=== PATIENT | female | born 1990 | race Caucasian/White ===

== ENCOUNTER 2020-10-07 16:02 | Inpatient (IN) | payer MEDICAID ==
[~2020-10-07] VITALS: Ht 170.2 cm; Wt 61.2 kg
[2020-10-07] MEDS ORDERED: WELLBUTRIN XL150 M1 PO (16:09)
[2020-10-07 16:40] LABS: BASOPHILS 0.1 % (0-2); EOSINOPHILS 2.1 % (0-7); HEMATOCRIT 43.2 % (36.0-48.0); HEMOGLOBIN 14.5 g/dL (12-16); IMMATURE GRANULOCYTES 0.2 % (0-5); LYMPHOCYTES 14.4 % (15-50); MCH 34.5 pg (26.0-34.0); MCHC 33.6 g/dL (31.0-37.0); MCV 102.9 fL (80.0-100.0); MEAN PLATELET VOLUME 8.1 fL (7.4-10.4); MONOCYTES 7.4 % (2-11); NEUTROPHIL ABS# 6.86 10x3/uL (1.56-6.13); NEUTROPHILS 75.8 % (40-80); PLATELET COUNT 235 10x3/uL (130-400); RDW 13.1 % (11.5-14.5); WBC 9.1 10x3/uL (4.8-10.8)
[2020-10-07 16:48] LABS: CALC OSMOLALITY 261 mosm/kg (275-300); CALCIUM 10.2 mg/dL (8.5-10.1); CARBON DIOXIDE 25.8 mmol/L (21.0-32.0); CHLORIDE - SERUM 94 mmol/L (98-107); CREATININE - SERUM 0.8 mg/dL (0.6-1.3); GLUCOSE 92 mg/dL (74-106); POTASSIUM - SERUM 3.9 mmol/L (3.5-5.1); SODIUM 130 mmol/L (136-145); UREA NITROGEN 16 mg/dL (7-18); eGFR NON AFRICAN AMERICAN 88 mL/min (90-120)
[2020-10-07 16:54] LABS: BILIRUBIN NEGATIVE (NEGATIVE); HCG URINE NEGATIVE (NEGATIVE); KETONE LARGE mg/dL (NEGATIVE); NITRITE NEGATIVE (NEGATIVE); UROBILINOGEN NORMAL mg/dL (< 2)
[2020-10-07 16:56] LABS: ALBUMIN 4.2 g/dL (3.4-5.0); ALKALINE PHOSPHATASE 117 U/L (30-120); ALT (SGPT) 28 U/L (10-68); AMYLASE - SERUM 147 U/L (25-115); BILIRUBIN - TOTAL 0.47 mg/dL (0.2-1.3); LIPASE 1417 U/L (73-393); PROTEIN - SERUM 8.5 g/dL (6.4-8.2); TROPONIN-I < 0.017 ng/mL (0.000-0.060)
[2020-10-07 19:42] VITALS: BP 121/93
[2020-10-08 04:00] VITALS: BP 122/82
[2020-10-08 06:25] LABS: BASOPHILS 0.2 % (0-2); EOSINOPHILS 2.7 % (0-7); HEMATOCRIT 38.8 % (36.0-48.0); HEMOGLOBIN 12.8 g/dL (12-16); IMMATURE GRANULOCYTES 0.3 % (0-5); LYMPHOCYTE ABS# 2.35 10x3/uL (1.18-3.74); LYMPHOCYTES 24.6 % (15-50); MCV 103.2 fL (80.0-100.0); MEAN PLATELET VOLUME 8.4 fL (7.4-10.4); MONOCYTES 6.3 % (2-11); NEUTROPHIL ABS# 6.28 10x3/uL (1.56-6.13); NEUTROPHILS 65.9 % (40-80); PLATELET COUNT 269 10x3/uL (130-400); RBC 3.76 10x6/uL (4.00-5.40); RDW 13.2 % (11.5-14.5); WBC 9.5 10x3/uL (4.8-10.8)
[2020-10-08 06:41] LABS: CALC OSMOLALITY 266 mosm/kg (275-300); CALCIUM 8.8 mg/dL (8.5-10.1); CHLORIDE - SERUM 97 mmol/L (98-107); CHOL - HDL RATIO 2.6 ratio (2.3-4.1); CHOLESTEROL, TOTAL 223 mg/dL (0-200); CREATININE - SERUM 0.7 mg/dL (0.6-1.3); GLUCOSE 76 mg/dL (74-106); HDL CHOLESTEROL 87 mg/dL (32-96); LDL CHOLESTEROL 119 mg/dL (0-100); LDL-HDL RATIO 1.4 ratio (1.5-3.5); MAGNESIUM - SERUM 2.8 mg/dL (1.8-2.4); PHOSPHOROUS 3.6 mg/dL (2.5-4.9); SODIUM 134 mmol/L (136-145); TRIGLYCERIDE 86 mg/dL (30-200); UREA NITROGEN 13 mg/dL (7-18); eGFR NON AFRICAN AMERICAN > 90 mL/min (90-120)
[2020-10-08 06:43] LABS: AMYLASE - SERUM 100 U/L (25-115); LIPASE 917 U/L (73-393); POTASSIUM - SERUM 3.3 mmol/L (3.5-5.1)
--- NOTE | 2020-10-08 07:07 | NUR ---
pt slept on and off throughout the night. said she will wake up and be in terrible pain. meds in the emar are helping. bed in lowest position and call light in reach
[2020-10-08 08:26] VITALS: BP 128/81
[2020-10-08 10:29] LABS: INR 1.01 (0.85-1.17); PROTIME 12.3 SECONDS (11.6-15.0)
[2020-10-08 12:43] VITALS: BP 115/76
[2020-10-08 13:58] VITALS: Ht 170.2 cm; Wt 61.2 kg
[2020-10-08 20:00] VITALS: BP 124/77
[2020-10-09] VITALS: BP 125/81
[2020-10-09 04:00] VITALS: BP 114/81
[2020-10-09 06:14] LABS: PROTIME 12.2 SECONDS (11.6-15.0)
[2020-10-09 06:24] LABS: BASOPHILS 0.1 % (0-2); EOSINOPHILS 3.7 % (0-7); HEMOGLOBIN 11.2 g/dL (12-16); IMMATURE GRANULOCYTES 0.4 % (0-5); LYMPHOCYTES 27.1 % (15-50); MCH 34.1 pg (26.0-34.0); MCHC 32.9 g/dL (31.0-37.0); MCV 103.7 fL (80.0-100.0); MEAN PLATELET VOLUME 8.2 fL (7.4-10.4); MONOCYTES 7.2 % (2-11); NEUTROPHIL ABS# 4.54 10x3/uL (1.56-6.13); NEUTROPHILS 61.5 % (40-80); PLATELET COUNT 218 10x3/uL (130-400); RBC 3.28 10x6/uL (4.00-5.40); RDW 13.2 % (11.5-14.5); WBC 7.4 10x3/uL (4.8-10.8)
[2020-10-09 06:56] LABS: CALC OSMOLALITY 270 mosm/kg (275-300); CALCIUM 8.1 mg/dL (8.5-10.1); CARBON DIOXIDE 25.2 mmol/L (21.0-32.0); CHLORIDE - SERUM 103 mmol/L (98-107); CREATININE - SERUM 0.6 mg/dL (0.6-1.3); GLUCOSE 101 mg/dL (74-106); MAGNESIUM - SERUM 2.2 mg/dL (1.8-2.4); PHOSPHOROUS 3.8 mg/dL (2.5-4.9); POTASSIUM - SERUM 3.6 mmol/L (3.5-5.1); SODIUM 136 mmol/L (136-145); UREA NITROGEN 10 mg/dL (7-18); eGFR NON AFRICAN AMERICAN > 90 mL/min (90-120)
[2020-10-09 08:14] VITALS: BP 118/85
[2020-10-09 12:19] VITALS: BP 107/75
[2020-10-09 17:05] VITALS: BP 104/66
[2020-10-09 20:00] VITALS: BP 126/83
[2020-10-10 04:00] VITALS: BP 100/64
[2020-10-10 06:00] LABS: BASOPHILS 0.4 % (0-2); EOSINOPHILS 3.5 % (0-7); HEMATOCRIT 33.6 % (36.0-48.0); IMMATURE GRANULOCYTES 0.2 % (0-5); LYMPHOCYTE ABS# 1.31 10x3/uL (1.18-3.74); LYMPHOCYTES 27.1 % (15-50); MCH 33.8 pg (26.0-34.0); MCHC 32.7 g/dL (31.0-37.0); MCV 103.4 fL (80.0-100.0); MEAN PLATELET VOLUME 8.3 fL (7.4-10.4); NEUTROPHIL ABS# 2.98 10x3/uL (1.56-6.13); NEUTROPHILS 61.8 % (40-80); PLATELET COUNT 253 10x3/uL (130-400); RBC 3.25 10x6/uL (4.00-5.40); RDW 13.1 % (11.5-14.5)
[2020-10-10 06:06] LABS: INR 0.96 (0.85-1.17); PROTIME 11.8 SECONDS (11.6-15.0)
[2020-10-10 06:19] LABS: WBC 4.8 10x3/uL (4.8-10.8)
[2020-10-10 06:31] LABS: CALC OSMOLALITY 277 mosm/kg (275-300); CARBON DIOXIDE 25.1 mmol/L (21.0-32.0); CHLORIDE - SERUM 106 mmol/L (98-107); CREATININE - SERUM 0.7 mg/dL (0.6-1.3); GLUCOSE 134 mg/dL (74-106); MAGNESIUM - SERUM 2.7 mg/dL (1.8-2.4); PHOSPHOROUS 3.3 mg/dL (2.5-4.9); POTASSIUM - SERUM 3.4 mmol/L (3.5-5.1); SODIUM 139 mmol/L (136-145); eGFR NON AFRICAN AMERICAN > 90 mL/min (90-120)
[2020-10-10 06:32] LABS: UREA NITROGEN 7 mg/dL (7-18)
[2020-10-10 08:14] VITALS: BP 104/72
[2020-10-10] MEDS ORDERED: ATIVAN1 MG PO ×2 (09:08→09:09)
--- NOTE | 2020-10-10 10:41 | MORECARE ---
CASE MANAGEMENT DISCHARGE SUMMARY PATIENT: DAJA HUIZAR UNIT: [id number] ADM DATE: 10/07/20 AGE: 30 : 88 SEX: F ROOM/BED: D.[facility]8 AUTHOR: TOÑA,DOC PHYSICIAN: REFERRING PHYSICIAN: ALISA FERNANDEZ MD DATE OF SERVICE: 10/10/20 Case Management Discharge Planning Summary COMMENTS ENTERED DATE: 10/10/20 10:38 CT COMMENT TYPE: Discharge Planning REVIEWER: Tricia [facility] given to nurse to include with dc instructions. DCP REVIEW SUMMARY ANTICIPATED D/C DATE: EXPECTED LOS : CASE STATUS: DCP Initiated INITIAL REVIEW: 10/08/2020 INITIAL REVIEWER: Tricia Sterling FINAL DISCHARGE DISPOSITION: : FINAL REVIEWER: FINAL REVIEW DATE: DCP Focus Questions & Answers - Added on: QUESTION: ANSWER : PATIENT: DAJA HUIZAR ENCOUNTER: [id number] MEDICAL RECORD#: [id number] ADMISSION DATE: 10/07/2020 DISCHARGE DATE: ATTENDING MD: : AGE: 30 MARITAL STATUS: S DC PLAN ID: [id number] FACILITY: [facility] PRINTED ON: 10/10/20 10:41 CT All edits/amendments must be made on the electronic document DICTATION DATE: 10/10/20 104 CALENDER WORKER HELPER: COOPER 10/10/20 1041 RPT#: [id number] DC DATE: STATUS: ADM IN [facility] [address] [place] [address] END OF REPORT
--- NOTE | 2020-10-10 12:02 | MORECARE ---
CASE MANAGEMENT DISCHARGE SUMMARY PATIENT: DAJA HUIZAR UNIT: [id number] ADM DATE: 10/07/20 AGE: 30 : 88 SEX: F ROOM/BED: D.[facility]8 AUTHOR: TOÑA,DOC PHYSICIAN: REFERRING PHYSICIAN: ALISA FERNANDEZ MD DATE OF SERVICE: 10/10/20 Case Management Discharge Planning Summary COMMENTS ENTERED DATE: 10/10/20 10:38 CT COMMENT TYPE: Discharge Planning REVIEWER: Tricia [facility] given to nurse to include with dc instructions. DCP REVIEW SUMMARY ANTICIPATED D/C DATE: EXPECTED LOS : CASE STATUS: DCP Initiated INITIAL REVIEW: 10/08/2020 INITIAL REVIEWER: Tricia Sterling FINAL DISCHARGE DISPOSITION: : FINAL REVIEWER: FINAL REVIEW DATE: DCP Focus Questions & Answers - Added on: QUESTION: ANSWER : PATIENT: DAJA HUIZAR ENCOUNTER: [id number] MEDICAL RECORD#: [id number] ADMISSION DATE: 10/07/2020 DISCHARGE DATE: ATTENDING MD: : AGE: 30 MARITAL STATUS: S DC PLAN ID: [id number] FACILITY: [facility] PRINTED ON: 10/10/20 12:02 CT All edits/amendments must be made on the electronic document DICTATION DATE: 10/10/201201 STOCK RECEIVER: COOPER 10/10/201201 RPT#: [id number] DC DATE: STATUS: ADM IN [facility] [address] [place] [address] END OF REPORT
--- NOTE | 2020-10-10 12:07 | NUR ---
IV THERAPY REMOVED FROM RIGHT FOREARM WITH TIP INTACT. PT VERBALIZED UNDERSTANDING OF DISCHARGE PAPERS. STATES SHE HAD TO GET SOMEONE UP HERE TO DRIVE HER CAR HOME.
--- NOTE | 2020-10-11 08:30 | MORECARE ---
CASE MANAGEMENT DISCHARGE SUMMARY PATIENT: DAJA HUIZAR UNIT: [id number] ADM DATE: 10/07/20 AGE: 30 : 88 SEX: F ROOM/BED: D.[facility]8 AUTHOR: TOÑA,DOC PHYSICIAN: REFERRING PHYSICIAN: ALISA FERNANDEZ MD DATE OF SERVICE: 10/11/20 Case Management Discharge Planning Summary COMMENTS ENTERED DATE: 10/10/20 10:38 CT COMMENT TYPE: Discharge Planning REVIEWER: Tricia [facility] given to nurse to include with dc instructions. DCP REVIEW SUMMARY ANTICIPATED D/C DATE: EXPECTED LOS : CASE STATUS: DCP Initiated INITIAL REVIEW: 10/08/2020 INITIAL REVIEWER: Tricia Sterling FINAL DISCHARGE DISPOSITION: : FINAL REVIEWER: FINAL REVIEW DATE: DCP Focus Questions & Answers - Added on: QUESTION: ANSWER : PATIENT: DAJA HUIZAR ENCOUNTER: [id number] MEDICAL RECORD#: [id number] ADMISSION DATE: 10/07/2020 DISCHARGE DATE: 10/10/2020 ATTENDING MD: : AGE: 30 MARITAL STATUS: S DC PLAN ID: [id number] FACILITY: [facility] PRINTED ON: 10/11/20 8:30 CT All edits/amendments must be made on the electronic document DICTATION DATE: 10/11/20829 CINDER BLOCK MASON: COOPER 10/11/20829 RPT#: [id number] DC DATE:10/10/20 STATUS: DIS IN [facility] [address] [place] [address] END OF REPORT
== END 2020-10-10 12:08 | disposition home or self-care (01) | DRG 439 ==
LOC: D.ER 16:02 → D.MS 21:24
PROVIDERS: Family Medicine; ADMIT Family Medicine; ATTEND Family Medicine
DX: K85.90 Acute pancreatitis without necrosis or infection, unspecified (principal); E87.1 Hypo-osmolality and hyponatremia; F10.20 Alcohol dependence, uncomplicated

== ENCOUNTER 2020-10-20 20:15 | Inpatient (IN) | payer MEDICAID ==
[~2020-10-20] VITALS: Ht 170.2 cm; Wt 61.2 kg
[~2020-10-20 20:15] MED LIST: ATIVAN1 MG PO; WELLBUTRIN XL150 M1 PO
[2020-10-20 20:53] LABS: BASOPHILS 0.3 % (0-2); EOSINOPHILS 1.8 % (0-7); HEMATOCRIT 42.4 % (36.0-48.0); HEMOGLOBIN 14.1 g/dL (12-16); IMMATURE GRANULOCYTES 0.4 % (0-5); LYMPHOCYTE ABS# 2.12 10x3/uL (1.18-3.74); MCH 34.2 pg (26.0-34.0); MCHC 33.3 g/dL (31.0-37.0); MCV 102.9 fL (80.0-100.0); MONOCYTES 4.1 % (2-11); NEUTROPHILS 72.4 % (40-80); RBC 4.12 10x6/uL (4.00-5.40); RDW 13.4 % (11.5-14.5); WBC 10.1 10x3/uL (4.8-10.8)
[2020-10-20 21:03] LABS: CALC OSMOLALITY 275 mosm/kg (275-300); CALCIUM 9.3 mg/dL (8.5-10.1); CARBON DIOXIDE 23.6 mmol/L (21.0-32.0); CHLORIDE - SERUM 104 mmol/L (98-107); CREATININE - SERUM 0.8 mg/dL (0.6-1.3); GLUCOSE 96 mg/dL (74-106); POTASSIUM - SERUM 4.2 mmol/L (3.5-5.1); SODIUM 139 mmol/L (136-145); UREA NITROGEN 8 mg/dL (7-18); eGFR NON AFRICAN AMERICAN 88 mL/min (90-120)
[2020-10-20 21:04] LABS: PLATELET COUNT 349 10x3/uL (130-400)
[2020-10-20 21:07] LABS: BILIRUBIN NEGATIVE (NEGATIVE); KETONE NEGATIVE (NEGATIVE); NITRITE NEGATIVE (NEGATIVE); UROBILINOGEN NORMAL mg/dL (< 2)
[2020-10-20 21:17] LABS: ALBUMIN 3.9 g/dL (3.4-5.0); ALKALINE PHOSPHATASE 143 U/L (30-120); ALT (SGPT) 33 U/L (10-68); BILIRUBIN - TOTAL 0.16 mg/dL (0.2-1.3); PROTEIN - SERUM 8.1 g/dL (6.4-8.2)
[2020-10-20 21:18] LABS: BACTERIA FEW HPF (NONE SEEN); SQUAMOUS EPITHELIAL 0-5 HPF (0-4); WHITE CELLS - URINE 0-5 HPF (0-4)
[2020-10-20 21:19] LABS: UDS - AMPHET NEGATIVE QUAL (NEGATIVE); UDS - BARB NEGATIVE QUAL (NEGATIVE); UDS - BENZO POSITIVE QUAL (NEGATIVE); UDS - COCAINE NEGATIVE QUAL (NEGATIVE); UDS - OPIATE NEGATIVE QUAL (NEGATIVE); UDS - PCP NEGATIVE QUAL (NEGATIVE); UDS - THC NEGATIVE QUAL (NEGATIVE)
[2020-10-20 21:20] LABS: HCG URINE NEGATIVE (NEGATIVE)
--- NOTE | 2020-10-20 22:00 | NUR ---
PT GIVEN WATER TO DRINK. DENIES NEEDS AT THIS TIME.
--- NOTE | 2020-10-21 | NUR ---
PT RESTING EYES CLOSED RESP EVEN AND UNLABORED.
[2020-10-21 02:35] VITALS: BP 136/74
[2020-10-21 04:35] VITALS: BP 126/87; BMI 21.2
[2020-10-21 05:51] LABS: APTT 26.8 SECONDS (22.8-39.4); INR 1.01 (0.85-1.17); PROTIME 12.3 SECONDS (11.6-15.0)
[2020-10-21 06:31] LABS: AMYLASE - SERUM 82 U/L (25-115); CKMB 0.8 U/L (0.0-3.6); CREATINE KINASE 92 UL (21-215); LIPASE 761 U/L (73-393); PRO BNP 23 pg/mL (0-125)
[2020-10-21 06:32] LABS: TROPONIN-I < 0.017 ng/mL (0.000-0.060)
[2020-10-21 08:00] VITALS: BP 130/86
--- NOTE | 2020-10-21 09:11 | NUR ---
PT AWAKE AND ORIENTED, SITTING IN BED CROSSLEGGED. C/O OF PAIN ON THE RIGHT SIDE OF HER BODY AND NAUSEA. STATES SHE FEELS GENERALLY TERRIBLE TODAY. TOOK ALL MEDICATIONS WITHOUT COMPLICATIONS. CL IN REACH, SRX2.
[2020-10-21 11:00] VITALS: BP 120/70
--- NOTE | 2020-10-21 18:00 | NUR ---
I have reviewed this patient and I concur with the Shift Assessment completed by the Licensed Practical Nurse today this shift.
--- NOTE | 2020-10-21 20:30 | NUR ---
PT REPORTS THAT SHE REMOVED THE BANDAGE IN PLACE WHERE LAB HAD DRAWN BLOOD FROM THIS AM. WHEN DOING SO, PT STATED SHE PULLED TAPE TO FAST AND TORE SKIN ON HER ARM. MEPILEX IN PLACE, COBAN LIGHTLY WRAPPED AROUND MEPILEX TO KEEP IN PLACE. L RADIAL PULSE PRESENT. SKIN PINK, SKIN CAP REFIL <2.
[2020-10-21 20:45] VITALS: BP 122/80
--- NOTE | 2020-10-21 21:30 | NUR ---
REPORT RECEIVED, WILL CONT POC. PT A&O, UP IN BED READING. NO S/S OF DISTRESS OBSERVED. RR EVEN & UNLABORED ON RA. BED LOCKED AND LOWERED, CL IN REACH. ASSESSMENT COMPLETED AT THIS TIME. WILL CONT TO MONITOR.
[2020-10-21 23:32] VITALS: BP 117/87
[2020-10-22 04:11] VITALS: BP 102/70
[2020-10-22 06:11] LABS: BASOPHILS 0.2 % (0-2); EOSINOPHILS 3.6 % (0-7); HEMOGLOBIN 12.1 g/dL (12-16); IMMATURE GRANULOCYTES 0.3 % (0-5); LYMPHOCYTE ABS# 2.28 10x3/uL (1.18-3.74); LYMPHOCYTES 26.3 % (15-50); MCH 33.4 pg (26.0-34.0); MCHC 31.8 g/dL (31.0-37.0); MEAN PLATELET VOLUME 8.1 fL (7.4-10.4); MONOCYTES 5.1 % (2-11); NEUTROPHILS 64.5 % (40-80); RBC 3.62 10x6/uL (4.00-5.40); RDW 13.3 % (11.5-14.5); WBC 8.7 10x3/uL (4.8-10.8)
[2020-10-22 06:14] LABS: PLATELET COUNT 266 10x3/uL (130-400)
[2020-10-22 06:37] LABS: ALKALINE PHOSPHATASE 101 U/L (30-120); AMYLASE - SERUM 102 U/L (25-115); CALCIUM 8.7 mg/dL (8.5-10.1); CARBON DIOXIDE 20.7 mmol/L (21.0-32.0); CHLORIDE - SERUM 108 mmol/L (98-107); CREATININE - SERUM 0.8 mg/dL (0.6-1.3); GLUCOSE 135 mg/dL (74-106); LIPASE 817 U/L (73-393); POTASSIUM - SERUM 3.6 mmol/L (3.5-5.1); PROTEIN - SERUM 6.4 g/dL (6.4-8.2); SODIUM 140 mmol/L (136-145); eGFR NON AFRICAN AMERICAN 88 mL/min (90-120)
[2020-10-22 06:39] LABS: ALT (SGPT) 23 U/L (10-68); BILIRUBIN - TOTAL 0.09 mg/dL (0.2-1.3); CALC OSMOLALITY 281 mosm/kg (275-300); UREA NITROGEN 16 mg/dL (7-18)
[2020-10-22 08:00] VITALS: BP 127/80
[2020-10-22 11:00] VITALS: BP 118/72
[2020-10-22 12:11] VITALS: Ht 170.2 cm; Wt 61.2 kg
--- NOTE | 2020-10-22 16:48 | CN ---
PATIENT NAME:DAJA HUIZAR MEDICAL RECORD: [id number] : 86 LOCATION:D. D.2108 ADMIT DATE: 10/20/20 ACCOUNT: [id number] CONSULTING PHYSICIAN: SHOLA GUZMÁN MD REFERRING PHYSICIAN: JOHN FERGUSON MD DATE OF CONSULTATION: 10/21/2020 IDENTIFYING DATA: The patient is 30 years old and she was admitted to the hospital voluntarily. CHIEF COMPLAINT: Anxiety and alcohol abuse. HISTORY OF PRESENT ILLNESS: The patient has a longstanding problem with alcohol and multiple bouts of pancreatitis. She tells me that she has been diagnosed in the past with bipolar disorder, but that she has not taken medications for it. She denies psychotic symptoms as well as thoughts of harming herself or others. ASSESSMENT: 1. Bipolar disorder by history. 2. Alcohol dependence. 3. Sedative hypnotic abuse. PLAN: At this time, the patient shows no evidence of acute or direct dangerousness which would necessitate inpatient psychiatric care. She does not want to go to inpatient psychiatric care, even though it that has been offered. Furthermore, she does not want to go to inpatient substance abuse treatment, even though I have offered that as well. Given the circumstances and her history, I am going to start her on lithium and Effexor for her bipolar disorder along with buspirone for her anxiety. I would recommend referral to outpatient mental health treatment and she is going to attend Alcoholics Anonymous and is to complete 90 meetings in 90 days and to obtain a sponsor. I think her long-term prognosis is entirely contingent upon her abstinence from substance abuse as well as following through with outpatient treatment recommendations for mental health followup. TRANSINT:[id number] Voice Confirmation ID: [id number] DOCUMENT ID: [id number] SHOLA GUZMÁN MD at 1648 CC: [id number] DICTATION DATE: 10/21/20 1707 ERGONOMICS TECHNICIAN: 10/22/20 0107 ADM IN [facility] [id number] [place] [address]
[2020-10-22 19:00] VITALS: BP 120/85
--- NOTE | 2020-10-22 21:48 | NUR ---
REPORT RECEIVED, WILL CONT POC. PT A&O, UP IN BED WATCHING TV. NO S/S OF DISTRESS OBSERVED. RR EVEN AND UNLABORED ON RA. BED LOCKED AND LOWERED, CL IN REACH. ASSESSMENT COMPLETED AT THIS TIME. PTS IV INFLITRATED DURING PREVIOUS SHIFT. PREVIOUS NURSE ATTEMPTED TO RESITE IV X3 WITH NO ACCESS. THIS NURSE RESITED IV TO R AC WITH A 20G X1 STICK. PT TOLERATED WITHOUT COMPLAINT. IV PATENT AND ATIVAN ADMINISTERED THROUGH NEW IV. WILL CONT TO MONITOR.
[2020-10-23] VITALS: BP 115/79
[2020-10-23 04:00] VITALS: BP 112/72
[2020-10-23 05:25] LABS: BASOPHILS 0.2 % (0-2); EOSINOPHILS 3.8 % (0-7); HEMATOCRIT 39.9 % (36.0-48.0); HEMOGLOBIN 13.1 g/dL (12-16); IMMATURE GRANULOCYTES 0.4 % (0-5); LYMPHOCYTE ABS# 2.21 10x3/uL (1.18-3.74); LYMPHOCYTES 23.7 % (15-50); MCH 33.9 pg (26.0-34.0); MCHC 32.8 g/dL (31.0-37.0); MCV 103.1 fL (80.0-100.0); NEUTROPHIL ABS# 6.41 10x3/uL (1.56-6.13); NEUTROPHILS 68.9 % (40-80); PLATELET COUNT 259 10x3/uL (130-400); RBC 3.87 10x6/uL (4.00-5.40); RDW 13.3 % (11.5-14.5); WBC 9.3 10x3/uL (4.8-10.8)
[2020-10-23 05:44] LABS: ALBUMIN 3.2 g/dL (3.4-5.0); ALKALINE PHOSPHATASE 99 U/L (30-120); ALT (SGPT) 21 U/L (10-68); AMYLASE - SERUM 86 U/L (25-115); BILIRUBIN - TOTAL 0.29 mg/dL (0.2-1.3); CALC OSMOLALITY 275 mosm/kg (275-300); CHLORIDE - SERUM 105 mmol/L (98-107); CREATININE - SERUM 0.7 mg/dL (0.6-1.3); GLUCOSE 88 mg/dL (74-106); MAGNESIUM - SERUM 1.9 mg/dL (1.8-2.4); POTASSIUM - SERUM 3.8 mmol/L (3.5-5.1); SODIUM 138 mmol/L (136-145); UREA NITROGEN 14 mg/dL (7-18); eGFR NON AFRICAN AMERICAN > 90 mL/min (90-120)
[2020-10-23 05:45] LABS: LIPASE 400 U/L (73-393)
--- NOTE | 2020-10-23 07:00 | NUR ---
PT LYING IN BED WITH EYES CLOSED. RAISES TO VERBAL STIMULI. RESP EVEN AND UNLABORED. AAOX4. PT DENIES NEEDS AT THIS TIME. CLIR. BED IN LOWEST POSITION. SIDE RAILS X2
[2020-10-23 08:28] VITALS: BP 102/65
--- NOTE | 2020-10-23 09:51 | MORECARE ---
CASE MANAGEMENT DISCHARGE SUMMARY PATIENT: DAJA HUIZAR UNIT: [id number] ADM DATE: 10/20/20 AGE: 30 : 88 SEX: F ROOM/BED: D.2108 AUTHOR: TOÑA,DOC PHYSICIAN: REFERRING PHYSICIAN: JOHN FERGUSON MD DATE OF SERVICE: 10/23/20 Case Management Discharge Planning Summary CT Patient Name: DAJA HUIZAR Attending MD : ALEKSANDRA FERGUSON, Medical Record: [id number] Encounter : [id number] Facility : [address] [place] [address] Admission Date : 123:27 Center Discharge Date : [address] [place] [address] Date of : DC Plan ID : [id number] Age/Sex/Martia : 30/ F/S Printed on : 10/23/20 9:50 CT DCP Review Details Anticipated D/C: Expected LOS : Case Status : INITIATED - Initial Reviewe: [id number] - Tata Shen Initial Review: 10/23/2020 Planned Disposi: 01 - Home or Self Care (Routine Discharge) Final Discharge: - Final Reviewer : : Final Review : DCP Focus Questions & Answers DCP Screen High Risk Factors: Readmission within past 30 days DCP Evaluation Patient's ability to cope with chronic illness d. No chronic illness Would patient like to participate in any Care Not applicable Coordination programs (if applicable): Mental health screen: No mental health history DCP Re-evaluation Would patient like to participate in any Care Not applicable Coordination programs (if applicable): [facility] DAJA HUIZAR MR#: [id number] /Age/Sex/Yszfjr79-Huc-84 /30/F /S Attending Physician Name: MARTY [id number] Patient Account:[id number] [facility] Page -1 of 1 All edits/amendments must be made on the electronic document DICTATION DATE: 10/23/20949 SPECIALTY TRANSFORMER ASSEMBLER: COOPER 10/23/20949 RPT#: [id number] DC DATE: STATUS: ADM IN [facility] [address] [place] [address] END OF REPORT
--- NOTE | 2020-10-23 10:05 | MORECARE ---
CASE MANAGEMENT DISCHARGE SUMMARY PATIENT: DAJA HUIZAR UNIT: [id number] ADM DATE: 10/20/20 AGE: 30 : 88 SEX: F ROOM/BED: D.2102 AUTHOR: TOÑA,DOC PHYSICIAN: REFERRING PHYSICIAN: JOHN FERGUSON MD DATE OF SERVICE: 10/23/20 Case Management Discharge Planning Summary CT Patient Name: DAAJ HUIZAR Attending MD : ALEKSANDRA FERGUSON, Medical Record: [id number] Encounter : [id number] Facility : [address] [place] [address] Medical Admission Date : 123:27 Center Discharge Date : [address] [place] [address] Date of : DC Plan ID : [id number] Age/Sex/Martia : 30/ F/S Printed on : 10/23/20 10:03 CT DCP Review Details Anticipated D/C: Expected LOS : Case Status : INITIATED - Initial Reviewe: [id number] - Tata Shen Initial Review: 10/23/2020 Planned Disposi: 01 - Home or Self Care (Routine Discharge) Final Discharge: - Final Reviewer : : Final Review : Comments CT Entered Date Type Reviewer 10/23/20 9:54 CT Discharge Planning Tata Shen Comment DC PLAN: Home ANTICIPATED DC NEEDS: No needs CM met with patient to complete initial dc planning assessment. CM educated patient on the CM role and verbal consent given by patient to complete assessment. CM verified patient's address, phone number, and emergency contact phone numbers. After verifying address, she gave me [facility] and then when questioned, states she has recently moved to [facility] (shelter mot). Patient lives at home alone. At discharge patient plans to return and feels this is a safe discharge. CM discussed availability of home health, rehab services, and medical equipment. Patient denied known discharge needs at this time. Transportation provider at discharge will be her boyfriend, Lukasz. I provided her with [email or web address] information and also local AA and ETOH rehab facilities and numbers. CM will continue to follow and will assist as needed with dc plans/needs. DCP Focus Questions & Answers DCP Screen High Risk Factors: Readmission within past 30 days DCP Evaluation Patient and/or caregiver agree upon recommended Yes discharge plan? Family / Caregiver's ability to cope with chronic b. Minimal (occasionally not dependable to illness: meet pt's. needs, can meet pt's. basic ADL's) Patient's current cognitive status: *Oriented to person, place, situation, time and present Patient gives permission to discuss discharge Lukasz jacinto - [phone] plans with: (name, relationship and number) Patient's ability to cope with chronic illness d. No chronic illness Does the patient have the ability to pay for or Yes attain post discharge needs / services? Physical Status: Independent with ADL's Equipment needed for post hospitalization: None Living Arrangements: Home Alone with Support Results of this evaluation have been discussed Patient with: Patient with capacity for self-care or can be Yes cared for in same environment as prior to hospitalization? Living arrangements comments: custodial Mot[employer] Baseline cognitive status: *Oriented to person, place, situation, time and present Physical environment modification needed / No anticipated for discharge: Facility / Agency name and contact information [facility] from [facility] (if applicable): Medication Management: Patient states can afford medications Planned post hospital services available for No patient? Pharmacy name(s): [facility] on [address] Does Patient have transportation to get home and Yes to follow-up medical appointments when discharged from the hospital? Comments: States boyfriend, Lukasz, will take her home Would patient like to participate in any Care Not applicable Coordination programs (if applicable): Does the patient have electricity at home? Yes Does the patient have running water in their Yes house? Equipment in use: None Mental health screen: Limited access to mental health services/provider Abuse/Neglect: Alcohol use - History of DCP Re-evaluation Would patient like to participate in any Care Not applicable Coordination programs (if applicable): [facility] DAJA HUIZAR MR#: [id number] /Age/Sex/Cjwrmk37-[id number]-04 //F /S Attending Physician Name: Abelardo [id number] Patient Account:[id number] [facility] Page -1 of 1 All edits/amendments must be made on the electronic document DICTATION DATE: 10/23/20 1003 INTEGRITY SPECIALIST: COOPER 10/23/20 1003 RPT#: [id number] DC DATE: STATUS: ADM IN [facility] [address] [facility] [place] [address] END OF REPORT
[2020-10-23] MEDS ORDERED: BUSPAR10 MG PO (11:03)
[2020-10-23] MEDS ORDERED: LITHIUM CARBON300 M3 PO (11:03)
[2020-10-23] MEDS ORDERED: CEPHALEXIN500 M1 PO (11:06)
[2020-10-23] MEDS ORDERED: LIBRIUM25 MG PO (11:07)
--- NOTE | 2020-10-23 11:41 | NUR ---
I have reviewed this patient and I concur with the Shift Assessment completed by the Licensed Practical Nurse today this shift.
[2020-10-23 12:07] VITALS: BP 91/58
--- NOTE | 2020-10-23 13:00 | NUR ---
PT DC HOME WITH FAMILY MEMBER. IV DC. IV CATHER INTACT. DC EDUCATION PROVIDED VERBALLY AND WRITTEN. PT VERBALIZED UNDERSTANDING
--- NOTE | 2020-10-24 03:44 | MORECARE ---
CASE MANAGEMENT DISCHARGE SUMMARY PATIENT: DAJA HUIZAR UNIT: [id number] ADM DATE: 10/20/20 AGE: 30 : 88 SEX: F ROOM/BED: D.2108 AUTHOR: TOÑA,DOC PHYSICIAN: REFERRING PHYSICIAN: JOHN FERGUSON MD DATE OF SERVICE: 10/24/20 Case Management Discharge Planning Summary CT Patient Name: DAJA HUIZAR Attending MD : ALEKSANDRA FERGUSON, Medical Record: [id number] Encounter : [id number] Facility : [address] [place] [address] Medical Admission Date : 123:27 Center Discharge Date : 10/23/[address] [place] [id number] Date of : DC Plan ID : [id number] Age/Sex/Martia : 30/ F/S Printed on : 10/24/20 3:43 CT DCP Review Details Anticipated D/C: Expected LOS : Case Status : INITIATED - Initial Reviewe: [id number] - Tata Shen Initial Review: 10/23/2020 Planned Disposi: 01 - Home or Self Care (Routine Discharge) Final Discharge: - Final Reviewer : : Final Review : Comments CT Entered Date Type Reviewer 10/23/20 9:54 CT Discharge Planning Tata Shen Comment DC PLAN: Home ANTICIPATED DC NEEDS: No needs CM met with patient to complete initial dc planning assessment. CM educated patient on the CM role and verbal consent given by patient to complete assessment. CM verified patient's address, phone number, and emergency contact phone numbers. After verifying address, she gave [facility] pharmacy and then when questioned, states she has recently moved to [facility] (shelter mot). Patient lives at home alone. At discharge patient plans to return and feels this is a safe discharge. CM discussed availability of home health, rehab services, and medical equipment. Patient denied known discharge needs at this time. Transportation provider at discharge will be her boyfriend, Lukasz. I provided her with [facility] information and also local AA and [facility] rehab facilities and numbers. CM will continue to follow and will assist as needed with dc plans/needs. DCP Focus Questions & Answers DCP Screen High Risk Factors: Readmission within past 30 days DCP Evaluation Patient's ability to cope with chronic illness d. No chronic illness Patient gives permission to discuss discharge Lukasz jacinto - [phone] plans with: (name, relationship and number) Patient's current cognitive status: *Oriented to person, place, situation, time and present Family / Caregiver's ability to cope with chronic b. Minimal (occasionally not dependable to illness: meet pt's. needs, can meet pt's. basic ADL's) Patient and/or caregiver agree upon recommended Yes discharge plan? Physical Status: Independent with ADL's Does the patient have the ability to pay for or Yes attain post discharge needs / services? 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 Results of this evaluation have been discussed Patient with: Facility / Agency name and contact information [facility] from [facility] (if applicable): Physical environment modification needed / No anticipated for discharge: Medication Management: Patient states can afford medications Pharmacy name(s): [facility] Planned post hospital services available for No patient? Does Patient have transportation to get home and Yes to follow-up medical appointments when discharged from the hospital? Would patient like to participate in any Care Not applicable Coordination programs (if applicable): Comments: States boyfriend, Lukasz, will take her home Does the patient have electricity at home? Yes Does the patient have running water in their Yes house? Equipment in use: None Mental health screen: Limited access to mental health services/provider Abuse/Neglect: Alcohol use - History of DCP Re-evaluation Would patient like to participate in any Care Not applicable Coordination programs (if applicable): [facility] DAJA HUIZAR MR#: [id number] /Age/Sex/Hmbgpf50-Ing-13 /30/F /S Attending Physician Name: Abelardo [id number] Patient Account:[id number] [facility] Page -1 of 1 All edits/amendments must be made on the electronic document DICTATION DATE: 10/24/20342 MARKETING COMMUNICATIONS ASSOCIATE: COOPER 10/24/20342 RPT#: [id number] DC DATE:10/23/20 STATUS: DIS IN [facility] [address] [place] [address] END OF REPORT
== END 2020-10-23 13:05 | disposition home or self-care (01) | DRG 897 ==
LOC: D.ER 20:15 → D.M2 23:27 → D.EDHOLD 23:27 → D.M2 10-21 02:28
PROVIDERS: Family Medicine; ADMIT Family Medicine; ATTEND Family Medicine
DX: F10.239 Alcohol dependence with withdrawal, unspecified (principal); F41.8 Other specified anxiety disorders; D75.89 Other specified diseases of blood and blood-forming organs; F31.9 Bipolar disorder, unspecified; F13.10 Sedative, hypnotic or anxiolytic abuse, uncomplicated